=== PATIENT | female | born 1945 | race Caucasian/White ===

== ENCOUNTER → 2017-05-06 | Outpatient (CLI) | payer MEDICARE ==
[2016-05-23] VITALS: BP 132/63
[~2017-05-06] MED LIST: ALEN70TA5 PO; CIPR500T94 PO; METR500T PO; MOME13HF2 IH; SIMV20TA3 PO
== END | disposition home or self-care (01) ==
LOC: LAB 09:23
PROVIDERS: ATTEND Family Medicine
DX: R19.7 Diarrhea, unspecified (principal)
CPT/HCPCS: 36415; 87045; 87324

== ENCOUNTER → 2018-10-20 | Outpatient (CLI) | payer MEDICARE ==
[2016-05-23] VITALS: BP 132/63
[~2018-10-20] MED LIST changes: -ALEN70TA5 PO; +ALEN70TA6 PO
--- NOTE | 2018-10-20 10:08 | KCIC ---
CHEST PA LATERAL History: Lung nodule Comparison: 06/15/2015 CT chest without contrast, 05/15/2017 CT chest without contrast. Findings: The cardiomediastinal silhouette is normal. Pulmonary vasculature is normal. Calcified granulomas are present. Scattered nodular infiltrates or scarring are similar upon correlation with the previous chest CT exam.. No pleural effusion or pneumothorax is seen. There is no acute bone abnormality. Levo convexity of the mid thoracic spine noted. Compensatory dextro convexity of the low thoracic and upper lumbar spine. IMPRESSION: No acute cardiopulmonary process. No significant change in scattered pulmonary nodular infiltrates as compared to 05/15/2017 CT chest without contrast. Electronically signed by: Matt Evans MD (10/20/2018 10:05 AM) [facility]
== END | disposition home or self-care (01) ==
LOC: KCIC 09:39
PROVIDERS: ATTEND Internal Medicine Critical Care Medicine
DX: J84.10 Pulmonary fibrosis, unspecified (principal)
CPT/HCPCS: 71046

== ENCOUNTER → 2020-04-23 | Outpatient (CLI) | payer MEDICARE ==
[2016-05-23] VITALS: BP 132/63
[~2020-04-23] MED LIST changes: -ALEN70TA6 PO; +ALEN70TA60 PO; +SIMV20TA18 PO; -SIMV20TA3 PO
== END ==
LOC: LAB 13:17
PROVIDERS: ATTEND Internal Medicine Cardiovascular Disease
DX: Z01.812 Encounter for preprocedural laboratory examination (principal); Z20.828 Contact with and (suspected) exposure to other viral communicable diseases
CPT/HCPCS: U0003-CS

== ENCOUNTER 2020-04-26 06:59 | Outpatient (CLI) | payer MEDICARE ==
[~2020-04-26] VITALS: Ht 162.6 cm; Wt 60.8 kg
[2020-04-26] VITALS (7 sets, daily range): BP systolic 95–118; BP diastolic 17–58
[2020-04-26] MEDS ORDERED: OMEP40CA45 PO (07:18)
[2020-04-26] MEDS ORDERED: BUDE10.2 IH (07:18)
[2020-04-26] MEDS ORDERED: MV-M1TAB7 PO (07:18)
[2020-04-26] MEDS ORDERED: LIDOCAINE 1% Multi-Dose 20 ML VIAL. ONE (07:46)
[2020-04-26 08:12] LABS: HEMATOCRIT 42.3 % (36.0-47.0); HEMOGLOBIN 14.2 g/dL (12.0-15.5); RED BLOOD COUNT 4.54 x10^6/uL (3.50-5.40); RED CELL DISTRIBUTION WIDTH 13.9 % (11.5-14.5); WHITE BLOOD COUNT 9.1 x10^3/uL (4.0-11.0)
[2020-04-26 08:25] LABS: PROTHROMBIN TIME PATIENT 12.3 SEC (11.7-14.0)
[2020-04-26] MEDS ORDERED: NITROGLYCERIN 200 MCG/2 ML SYRINGE FOR CATH/VASC LAB. ONE (08:27)
[2020-04-26] MEDS ORDERED: fentaNYL PF VIAL 100 MCG/2 ML VIAL ONE (08:27)
[2020-04-26] MEDS ORDERED: VERAPAMIL 5 MG/2 ML VIAL. ONE (08:27)
[2020-04-26] MEDS ORDERED: HEPARIN for IV BOLUS 10,000 UNIT/10 ML VIAL. ONE (08:27)
[2020-04-26] MEDS ORDERED: MIDAZOLAM HCL/PF 2 MG/2 ML VIAL. ONE (08:27)
[2020-04-26 08:29] LABS: CALCIUM 9.2 mg/dL (8.5-10.1); CREATININE 0.9 mg/dL (0.6-1.0); GFR 60.7
[2020-04-26 08:30] LABS: POTASSIUM 4.8 mmol/L (3.5-5.1)
[2020-04-26] MEDS ORDERED: IODIXANOL 320 MG/ML 100 ML VIAL. ONE (08:39)
[2020-04-26] MEDS ORDERED: IODIXANOL 320 MG/ML 100 ML VIAL. IART ONE (08:45)
[2020-04-26] MEDS ORDERED: LIDOCAINE 1% PF 2 ML VIAL. INJ ONE (08:45)
[2020-04-26] MEDS ORDERED: NITROGLYCERIN 200 MCG/2 ML SYRINGE FOR CATH/VASC LAB. IART ONE (08:45)
[2020-04-26] MEDS ORDERED: MIDAZOLAM HCL/PF 2 MG/2 ML VIAL. IV ONE (08:45)
[2020-04-26] MEDS ORDERED: fentaNYL PF VIAL 100 MCG/2 ML VIAL IV ONE (08:45)
[2020-04-26] MEDS ORDERED: VERAPAMIL 5 MG/2 ML VIAL. IART ONE (08:45)
[2020-04-26] MEDS ORDERED: HEPARIN for IV BOLUS 10,000 UNIT/10 ML VIAL. IART ONE (08:45)
[2020-04-26] MEDS ORDERED: LIDOCAINE 1% Multi-Dose 20 ML VIAL. INJ ONE (09:00)
[2020-04-26] MEDS ORDERED: CONTRAST GIVEN. MC PRN (09:00)
--- NOTE | 2020-04-26 09:48 | CARD ---
MR#: [id number] Date of Study: 04/26/2020 Ordering Physician: KHAI VALDEZ, Referring Physician: KHAI VALDEZ, Tech: JIE BIRD RTR APPROVED REPORT Technologist: JIE BIRD RTR Nurse: COSME MENSAH RN Procedure(s) performed: MODERATE SEDATION TIME: 40 MINUTES FLUORO TIME: 2.8 MIN DOSE: 20.5 GYCM2 CONTRAST: 71CC VISI LHC, RHC, Coronary angiography HISTORY The patient is a 75 year-old female with a history of : hypertension, dyslipidemia. INDICATION The indication(s) include : unstable angina , dyspnea. [facility] Clinical Frailty Scale [facility] Clinical Frailty Scale: Mildly Frail Heart Failure Heart Failure: Yes If Yes, Newly Diagnosed: Yes If Yes, HF Type: Diastolic If Yes, NYHA Class: Class II PROCEDURE NARRATIVE Clinical information: 75-year-old woman with known history of asthma, hypertension presenting with ex ertional dyspnea and chest pain suggestive of unstable angina. After discussion of the risks and marcia efits the patient underwent a cardiac catheterization. Procedure details: After appropriate informed consent the right wrist and right neck were prepped and draped in usual st erile fashion. Under 2% lidocaine local anesthesia a 6 Algerian introducer sheath was placed in the [facility] radial artery via the Seldinger technique. A 5 Algerian introducer sheath was placed in the right internal jugular vein via ultrasound and fluoroscopic guidance. Diagnostic angiography was performed with a 6 Algerian TIG catheter and left ventriculogram was perform ed with a pigtail catheter and a pullback was performed. A 5 Algerian PA catheter was used to measure pressures and saturations in the right heart chambers. At case completion the right radial sheath was removed and a Terumo radial band was applied for hemos tasis. The right internal jugular vein sheath was removed and hemostasis was achieved with manual co mpression. No acute complications are noted. Findings: Hemodynamics: Aorta 110/80 Right atrial pressure 5 mmHg Right ventricle: 21/1/5 PA 22/3/12 Wedge: 9 Wedge saturation 99.1% PA saturation 83.2% Sofya cardiac output: 4.97 Sofya cardiac index: 3.0 Coronary angiography: Left main is a large-caliber vessel with normal angiographic appearance LAD is a moderate caliber vessel with normal angiographic appearance Ramus is a small to moderate caliber vessel with normal angiographic appearance D1 is a small caliber vessel with normal angiographic appearance Left circumflex is a large-caliber vessel with normal angiographic appearance OM1 is a moderate caliber vessel with normal angiographic appearance L PDA is a small caliber vessel with normal angiographic appearance RCA is a small caliber nondominant vessel with normal angiographic appearance Left ventriculogram: Normal LV systolic function with ejection fraction of 60% and no aortic or nikole l insufficiency noted. Conclusion 1. Normal biventricular filling pressures 2. No pulmonary hypertension 3. Normal cardiac output 4. No angiographic evidence of coronary artery disease Recommendations 1. Consider microvascular angina for chest pain or bronchospasm. Continue medical therapy. Signed by : Khai Valdez, Electronically Approved : 04/26/2020 09:47:45
--- NOTE | 2020-04-26 11:51 | NUR ---
discharge instructions reviewed with patient and family. Right wrist dressing changed. armboard reapplied. Pt ambulated and tolerated PO. Pt home in private vehicle. PIV dc'd
== END 2020-04-26 11:52 | disposition home or self-care (01) ==
LOC: CCL 06:59
PROVIDERS: ATTEND Internal Medicine Cardiovascular Disease
DX: I20.0 Unstable angina (principal); I11.0 Hypertensive heart disease with heart failure; I50.9 Heart failure, unspecified; R06.09 Other forms of dyspnea; J45.909 Unspecified asthma, uncomplicated; E78.5 Hyperlipidemia, unspecified; K21.9 Gastro-esophageal reflux disease without esophagitis; Z98.51 Tubal ligation status; Z88.2 Allergy status to sulfonamides; Z79.899 Other long term (current) drug therapy
CPT/HCPCS: 36415; 80048; 85027; 85610; 93460; 99152; 99153; C1769; C1773; C1892; J1644; J2250; J3010; J3490; Q9967

== ENCOUNTER → 2021-06-27 | Outpatient (CLI) | payer MEDICARE ==
[2020-10-28 11:00] VITALS: BP 110/62
[~2021-06-27] MED LIST changes: -ALEN70TA60 PO; +ALEN70TA71 PO; +BUDE10.2 IH; +CIPR250T30 PO; +IOHEXOL 240 MG/ML 50ML VIAL. PO ONE; +IOHEXOL 300 MG/ML 100ML VIAL. IV ONE; +MV-M1TAB7 PO; +OMEP40CA7 PO
[2021-06-27 08:53] LABS: CREATININE 0.8 mg/dL (0.6-1.0); GFR 69.4
--- NOTE | 2021-06-27 11:13 | RAD ---
Exam: CT abdomen/pelvis with intravenous contrast Indication: Diverticulitis of colon perforation, abdominal pain Comparison: CT abdomen pelvis 10/28/2020 Technique: Helical CT imaging performed of the abdomen and pelvis after the intravenous administratio n of 75 mL Omnipaque 300 contrast. Sagittal and coronal reformats were obtained. One or more of the following individualized dose reduction techniques were utilized for this examinat ion: 1. Automated exposure control 2. Adjustment of the mA and/or kV according to patient size 3. Use of iterative reconstruction technique. Findings: Lower chest: Unchanged 3 mm nodule in the left lower lobe. Liver: Liver is normal in size. There are 2 unchanged subcentimeter hypodensities in the right hepati c lobe, too small to characterize but likely simple cysts. Gallbladder/Biliary Tree: Normal. Pancreas: Normal. Spleen: Normal Adrenal Glands: Normal. Kidneys/Ureters/Bladder: Kidneys are normal in size. No hydronephrosis. There are bilateral extrarena l pelves. Ureters and bladder are unremarkable. Reproductive Organs: Uterus is present. There is calcified fibroid in the fundus on the left. Ovaries are prominent for age. Stomach, small bowel, and colon: The stomach is normal. There is no small bowel obstruction. There is moderate sigmoid diverticulosis. No acute diverticulitis. Vasculature: No aortic aneurysm. Lymph Nodes: No lymphadenopathy. Peritoneum and retroperitoneum: No free fluid or free air. Bones: No acute osseous abnormality. Mild thoracolumbar scoliosis. There is moderate right greater th an left facet arthrosis at L4-L5 and L5-S1. IMPRESSION: 1. Unchanged moderate sigmoid diverticulosis. No acute diverticulitis. 2. Calcified fibroid in the uterus. Unchanged 1.2 cm hyperdense nodule in the endometrium, possibly a submucosal fibroid or endometrial mass. Pelvic ultrasound could be obtained to further evaluate if n eeded. Electronically signed by: Asiya Hammond MD (06/27/2021 11:11 AM) [facility]
== END ==
LOC: CT 08:27
PROVIDERS: ATTEND Internal Medicine Gastroenterology
DX: K57.20 Diverticulitis of large intestine with perforation and abscess without bleeding (principal); D25.9 Leiomyoma of uterus, unspecified; R91.1 Solitary pulmonary nodule; M41.85 Other forms of scoliosis, thoracolumbar region; M47.817 Spondylosis without myelopathy or radiculopathy, lumbosacral region
CPT/HCPCS: 36415; 74177; 82565; 84520; Q9966; Q9967